=== PATIENT | male | born 1995 | race Caucasian/White ===

== ENCOUNTER 2017-01-30 14:15 | Emergency (ER) | payer SELFPAY ==
--- NOTE | ~2017-01-30 | ER ---
PATIENT'S NAME: VALERIA BRODERICK [facility] AGE: 21 Y [address] ROOM: [place] [id number] LOCATION: [facility] ADMIT DATE: 01/30/2017 ER/Outpatient Report DISCHARGE DATE: 01/30/2017 FAMILY PHYSICIAN: PHYSICIAN, NO ATTENDING PHYSICIAN: Braxton Diaz CHIEF COMPLAINT: Right foot pain. HISTORY OF PRESENT ILLNESS: Yesterday evening, the patient stepped on a nail, went through his shoe into his foot. He states that it "hit the bone" and there was a lot of bleeding, but he is able to get it to stop with some superglue. He had some more discomfort today and thought he should get it checked out. He does not remember his last tetanus shot. Denies any allergies. Otherwise, healthy individual. PAST MEDICAL HISTORY: Documented on the record and reviewed by me. SOCIAL HISTORY: Documented on the record and reviewed by me. MEDICATIONS: Documented on the record and reviewed by me. ALLERGIES: DOCUMENTED ON THE RECORD AND REVIEWED BY ME. REVIEW OF SYSTEMS: All systems reviewed and negative except as noted in the HPI. PHYSICAL EXAMINATION: VITAL SIGNS: Blood pressure 146/64, pulse 71, respiratory rate 16, temperature 98.1, SpO2 is 95% on room air. Pain is rated at 7/10. GENERAL: Age-appropriate male, in no obvious pain or distress, resting comfortably on exam table, watching television. HEENT: Normocephalic, atraumatic. Eyes are PERRL. Oropharynx is clear. NECK: Supple. Trachea is midline. CHEST: Even unlabored respirations. No obvious abnormalities. ABDOMEN: Normal to inspection. HEART: Regular with normal regular pulses peripheral. EXTREMITIES: Warm and well perfused with brisk capillary refill. The right lower extremity is notable for a small puncture wound between the third and fourth metatarsals in the ball of the foot. No active bleeding. No PATIENT'S NAME: VALERIA BRODERICK [facility] AGE: 21 Y [address] ROOM: [place] [address] LOCATION: [facility] ADMIT DATE: 01/30/2017 ER/Outpatient Report DISCHARGE DATE: 01/30/2017 FAMILY PHYSICIAN: PHYSICIAN, NO ATTENDING PHYSICIAN: Braxton Diaz fluctuance. No erythema, but it is tender in the region. There is no particular pain with movement of the toes. The foot is otherwise neurovascularly intact. LABORATORY DATA AND X-RAYS: Plain films of the foot do not reveal any foreign bodies or obvious bony and osseous abnormalities. Labs: WBC is 11.0, hemoglobin 14.6, platelets 235. ESR is 5. CRP 0.54. CMS is unremarkable. IMPRESSION: Puncture wound to the bottom of the foot. EMERGENCY DEPARTMENT COURSE: The patient was seen and evaluated. He was given a tetanus booster and was given a dose of ciprofloxacin IV. He does not have presentation of deep seated abscess in the foot at this time. We will give him ciprofloxacin to take at home. He should follow up if not improving. If he were to worsen, he should return immediately for re-evaluation and further investigation regarding possible abscess in the foot, however, there is no findings consistent with that at this time. MD DINAH ZARAGOZA/jian /[id number] d: 01/30/17 2306 t: 02/13/17 0804, OUTPATIENT REPORT
[2017-01-30 14:42] LABS: BASOPHIL % 0.3 %; EOSINOPHIL # 0.1 K/uL (0.0-0.5); EOSINOPHIL % 1.2 %; HEMATOCRIT 47.1 % (37.0-53.0); HEMOGLOBIN 16.4 g/dL (12.0-17.0); IMMATURE GRANULOCYTE % 0.3 %; LYMPHOCYTE # 2.2 K/uL (0.8-4.0); LYMPHOCYTE % 19.8 %; MCH 31.6 pg (27.0-34.0); MCHC 34.8 gm/dL (32.0-36.5); MCV 90.8 fl (83.0-98.0); MONOCYTE % 9.1 %; MPV 9.5 fl (9.4-12.4); NEUTROPHIL # (ANC) 7.6 K/uL (1.4-9.0); NEUTROPHIL % 69.3 %; NRBC % 0 /100WBC (0-0.00); PLATELET COUNT 235 K/uL (150-450); RBC 5.19 M/uL (4.00-6.00)
[2017-01-30 14:58] LABS: ALBUMIN 4.1 gm/dL (3.5-5.0); ALK PHOS 73 IU/L (33-138); ALT 30 IU/L (12-78); ANION GAP 14.7 (10.0-19.0); AST 31 IU/L (10-40); BLOOD UREA NITROGEN 15 mg/dL (6-24); CALCIUM 8.8 mg/dL (8.5-10.5); CHLORIDE 107 mMol/L (96-110); CO2 24 mMol/L (22-32); ESTIMATED GFR (MDRD EQUATION) > 60; POTASSIUM 3.7 mMol/L (3.7-5.1); SODIUM 142 mMol/L (135-145); TOTAL BILIRUBIN 0.5 mg/dL (0.0-1.5); TOTAL PROTEIN 7.7 g/dL (6.0-8.4)
== END 2017-01-30 15:52 | disposition disaster alternative care site (69) ==
LOC: GACC 14:15
PROVIDERS: Emergency Medicine
DX: S91.331A Puncture wound without foreign body, right foot, initial encounter (principal); Z23 Encounter for immunization; W45.0XXA Nail entering through skin, initial encounter
CPT/HCPCS: J0744

== ENCOUNTER 2017-02-16 15:52 | Emergency (ER) | payer SELFPAY ==
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
[2017-02-16 16:24] LABS: BASOPHIL % 0.2 %; EOSINOPHIL # 0.2 K/uL (0.0-0.5); EOSINOPHIL % 1.4 %; HEMATOCRIT 48.7 % (37.0-53.0); HEMOGLOBIN 16.6 g/dL (12.0-17.0); IMMATURE GRANULOCYTE % 0.4 %; LYMPHOCYTE % 18.7 %; MCH 31.3 pg (27.0-34.0); MCHC 34.1 gm/dL (32.0-36.5); MCV 91.9 fl (83.0-98.0); MONOCYTE # 0.9 K/uL (0.0-1.0); MONOCYTE % 8.2 %; MPV 9.4 fl (9.4-12.4); NEUTROPHIL # (ANC) 7.5 K/uL (1.4-9.0); NEUTROPHIL % 71.1 %; NRBC % 0 /100WBC (0-0.00); PLATELET COUNT 264 K/uL (150-450); RDW-CV 12.3 % (11.9-14.6); WBC 10.5 K/uL (4.0-11.0)
== END 2017-02-16 17:12 | disposition disaster alternative care site (69) ==
LOC: GMED 15:52
PROVIDERS: Physician Assistant Medical
DX: J06.9 Acute upper respiratory infection, unspecified (principal); F17.210 Nicotine dependence, cigarettes, uncomplicated; Z91.030 Bee allergy status; Z91.09 Other allergy status, other than to drugs and biological substances; Z90.49 Acquired absence of other specified parts of digestive tract